=== PATIENT | female | born 2000 | race Caucasian/White ===

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

== ENCOUNTER 2019-03-28 08:33 | Emergency (ER) | payer OTHER ==
[~2019-03-28] VITALS: Ht 154.9 cm; Wt 105.0 kg
[2019-03-28] MEDS ORDERED: NICOTINE GUM2 MG BUCCAL (08:54)
[2019-03-28] MEDS ORDERED: ZOFRAN4 MG PO (10:11)
[2019-03-28] MEDS ORDERED: MACROBID 100 M100 MG PO (10:15)
== END 2019-03-28 10:39 | disposition home or self-care (01) ==
LOC: ED 08:33
DX: O21.2 Late vomiting of pregnancy (principal); Z3A.31 31 weeks gestation of pregnancy; F17.200 Nicotine dependence, unspecified, uncomplicated; Z88.0 Allergy status to penicillin; Z88.5 Allergy status to narcotic agent; Z79.899 Other long term (current) drug therapy
CPT/HCPCS: 80053; 81001; 83690; 85025; 87088; 96361; 96374; 99284-25; J2405; J7121

== ENCOUNTER 2019-04-29 18:11 | Emergency (ER) | payer OTHER ==
[~2019-04-29] VITALS: Ht 154.9 cm; Wt 105.0 kg
[~2019-04-29 18:11] MED LIST changes: +MACROBID 100 M100 MG PO; +NICOTINE GUM2 MG BUCCAL; +ZOFRAN4 MG PO
== END 2019-04-29 21:38 | disposition home or self-care (01) ==
LOC: ED 18:11
DX: J10.1 Influenza due to other identified influenza virus with other respiratory manifestations (principal); F17.200 Nicotine dependence, unspecified, uncomplicated; Z88.0 Allergy status to penicillin; Z88.5 Allergy status to narcotic agent
CPT/HCPCS: 80053; 81001; 85025; 87502; 96361; 96374; 96375; 99284-25; J2405; J2550; J7030

== ENCOUNTER 2019-05-02 12:35 | Observation (INO) | payer OTHER ==
--- NOTE | ~2019-05-02 | HP ---
[facility] [address] [place], [place] [address] Draft ADMISSION DATE: 05/02/2019 CHIEF COMPLAINT: Intrauterine at 36 weeks gestation with influenza and elevated transaminase. HISTORY OF PRESENT ILLNESS: Ms. Anguiano is a pleasant 18-year-old, G2, P0-0-1-0 with intrauterine at 36 weeks and 1 day gestation, who presented to the office today for routine OB visit. The patient was seen in the emergency department on 04/29/2019 with cough, malaise, nausea, and vomiting. She was subsequently diagnosed with influenza B and was treated as an outpatient with Tamiflu 75 mg p.o. b.i.d. The patient has had nausea and vomiting for approximately one month and had some incidentally mildly elevated transaminases one month ago. When seen in the ER on April 29, AST was significantly elevated at 128, ALT was 263 with the remainder of her labs otherwise normal. Again, she was discharged after being determined that she was stable and seen today for followup. Upon presentation in the office today, the patient is ill appearing, afebrile with a documented 13 pounds weight loss in two weeks time. She was then direct admit from the office. The patient reports nearly two weeks history of limited p.o. intake due to severe nausea and vomiting. Last full meal that she had was approximately two weeks ago. She feels weak, nauseated, tired, and vomiting multiple times per day. She complains of some low back pain, two weeks duration of diarrhea and headache. She also has a nonproductive cough, but denies fever, lightheadedness, or dizziness. The patient denies contractions, vaginal bleeding, discharge, and reports positive movement throughout this episode. The patient also reports multiple family members that have also had very similar symptoms, more mild in intensity. Her partner was also diagnosed with influenza in the emergency department on 04/29. PAST MEDICAL HISTORY: 1. Mild asthma, this is exercise and environmentally induced. 2. Depression. 3. Anxiety. SURGERIES: None. MEDICATIONS: 1. gummy one tablet daily. PATIENT NAME: ANDRE ANGUIANO HISTORY AND PHYSICAL DATE OF : [birth year] REPORT #: [id number] PHYSICIAN: MIGUEL ANDERSON DO PCP: STEFFI HARDY REPORT IS CONFIDENTIAL AND NOT TO BE RELEASED WITHOUT AUTHORIZATION [facility] [address] [place], [place] [address] Draft 2. Zofran 4 mg p.o. p.r.n., which patient denies taking. 3. Tamiflu 75 mg p.o. b.i.d., started 04/29/2019. ALLERGIES: Penicillin - rash and breathing problems. SOCIAL HISTORY: Approximately one cigarette per day. Denies alcohol or drug use, but did use marijuana in the beginning of her . FAMILY HISTORY: 1. Paternal uncle with diabetes type 2. 2. Maternal grandfather with kidney transplant. 3. Paternal grandmother with breast cancer, paternal aunt with ovarian cancer, paternal grandfather with skin cancer. 4. Paternal grandfather with heart disease. 5. Paternal uncle with COPD. REVIEW OF SYSTEMS: A complete review of systems was performed and negative except per HPI. PHYSICAL EXAMINATION: VITAL SIGNS: Temperature 97.5, pulse 104, respiratory rate 18, blood pressure 120/57, and pulse ox 99. HEENT: Normocephalic and atraumatic. NECK: Supple. Trachea midline. No lymphadenopathy. HEART: Regular rate and rhythm. No murmurs. LUNGS: Bilateral rales. No wheezes or crackles. Nonproductive cough noted. ABDOMEN: Gravid, soft, nondistended. No rebound or guarding noted. Fundal height 38 cm. PELVIC: Shows cervix closed, thick, and high. GBS was performed in the office today. EXTREMITIES: Trace edema bilaterally. LABORATORY EVALUATION: WBCs 6.8, hemoglobin 12.3, and platelets 256. PT 12.8, PTT 32, and fibrinogen 506. Sodium 135, potassium 3.6, chloride 104, CO2 of 15, BUN 7, creatinine 0.49, glucose 64, uric acid 7.8, calcium 9.3, phosphate 3.2, magnesium 1.5, AST 53, ALT 178, alkaline phosphatase 171, bilirubin 1.1, LDH 116. Urine protein creatinine ratio pending and hepatitis panel also pending. IMAGING DATA: BPP was performed that shows BPP 88 with heart rate 150, MARRY 19.75 in the breech PATIENT NAME: ANDRE ANGUIANO HISTORY AND PHYSICAL DATE OF : [birth year] REPORT #: [id number] PHYSICIAN: MIGUEL ANDERSON DO PCP: STEFFI HARDY REPORT IS CONFIDENTIAL AND NOT TO BE RELEASED WITHOUT AUTHORIZATION [facility] [address] [place] [address] [place], [place] [address] Draft presentation. Abdominal ultrasound shows normal pancreas, liver, gallbladder, right kidney, and no ascites. IMPRESSION: 1. Intrauterine at 36 and one week gestation. 2. Influenza B in . 3. Nausea and vomiting of /hyperemesis. 4. Elevated transaminases. PLAN: We will admit the patient for observation. We will replete electrolytes and treat symptomatically with IV bolus and fluids. We will also treat with antiemetics including Zofran, Reglan, and Phenergan p.r.n. Continuous monitoring was observed for the first several hours of her admission that showed category one tracing and this will be deescalated to q.shift unless clinical picture changes. The patient will continue Tamiflu 75 mg p.o. b.i.d. to complete a 5-day course of treatment. Diet regular and we will increase as tolerated. Again, imaging was normal and I believe that her symptoms are result of nausea, vomiting in /gastritis that was significantly exacerbated by recent diagnosis of influenza. Respiratory status is reassuring and I do not think that she will need escalation in her care for influenza at this time. I reviewed breech presentation with the patient and should she labor in breech presentation, a delivery would be indicated. Cervix is closed, thick and high today and we will continue to manage with possible external cephalic version in the future. All questions were answered to the best of my ability and the patient's apparent satisfaction. Group B strep was obtained in the office today and results are pending. We will repeat a.m. labs and likely discharge home tomorrow. All questions were answered to the best of my ability. DO MELL Singh/KENNA /[id number] Copies: PATIENT NAME: ANDRE ANGUIANO HISTORY AND PHYSICAL DATE OF : [birth year] REPORT #: [id number] PHYSICIAN: MIGUEL ANDERSON DO PCP: STEFFI HARDY REPORT IS CONFIDENTIAL AND NOT TO BE RELEASED WITHOUT AUTHORIZATION [address] [address] Draft ~ PATIENT NAME: ANDRE ANGUIANO HISTORY AND PHYSICAL DATE OF : [birth year] REPORT #: [id number] PHYSICIAN: MIGUEL ANDERSON DO PCP: STEFFI HARDY REPORT IS CONFIDENTIAL AND NOT TO BE RELEASED WITHOUT AUTHORIZATION
[2019-05-02] MEDS ORDERED: ONDANSETRON HCL4 MG PO (13:20)
[2019-05-02] MEDS ORDERED: NITROFURANTOIN100 M1 PO (13:21)
[2019-05-02] MEDS ORDERED: NICOTINE GUM2 MG (13:21)
--- NOTE | 2019-05-02 13:51 | NUR ---
PT TO ROOM 107 UNABLE TO OBTAIN IV ACCESS X3 ATTEMPTS, LAB HERE TO OBTAIN SAMPLE. US WILL COME BACK. PT HAD N/V 200MLS
--- NOTE | 2019-05-02 14:30 | NUR ---
MEDICATED WITH ZOFRAN 4MG IVP, REGLAN 10MG IVP AND PHERGANE 12.5 MG IVP SLOWLEY AND DILUTATED IN 20MLS OF NS. PT HAD HAD BEEN VOMETING AND NOT EVEN ABLE TO KEEP WATER DOWN.
--- NOTE | 2019-05-02 15:02 | NUR ---
PATIENT'S MOTHER CAME TO DESK AND REPORTS PATIENT IS SHAKY AND LIGHTHEADED. NURSE RESPONDED TO ROOM, PATIENT BREATHING FAST. NURSE INSTRUCTED TO PURSE LIP BREATH. BREATHING SLOWED. PATIENT REPORTS FEELING BETTER. VS TAKEN, REPORTED TO PRIMARY NURSE
--- NOTE | 2019-05-02 16:00 | NUR ---
PT APPEARS TO BE RESTING OR SLEEPING AT THIS TIME. SHE IS ON HER LEFTSIDE WITH THE MONITOR INPLACE. SHE RECEIVED HER 1 LITER BOLUS OF LR. AND NOW HAS LR AT 125MLS/HR RUNNING. HER FAMILY HAS BEEN AT THE BEDSIDE ALL AFTERNOON WITH PT.
--- NOTE | 2019-05-02 16:51 | NUR ---
PT DID VOID, BUT NO SAMPLE SENT ATT HIS TIME. WILL TRY AGAIN. PT STATES "I FEEL BETTER".
--- NOTE | 2019-05-02 17:04 | NUR ---
FAMILY BROUGHT IN [place] FOR THEMSELVES, PT TOOK AND LEMON/LINE SODA AT THIS TIME.
[2019-05-02] MEDS ORDERED: PHENADOZ25 MG PR (18:06)
[2019-05-02] MEDS ORDERED: TAMIFLU75 MG PO (18:06)
--- NOTE | 2019-05-02 18:07 | NUR ---
MED REC COMPLETE
--- NOTE | 2019-05-02 18:37 | NUR ---
URINE SAMPLE SENT TO LAB AT THIS TIME. PT VOIDED 200MLS DENISHA IN COLOR URINE. PT IN BED EATTING A SALAD AT THIS TIME. PT STATES "I FEEL SO MUCH BETTER" PT EVENS APPEAR TO LOOK BETTER WITH COLOR.
--- NOTE | 2019-05-02 19:10 | NUR ---
REPORT RECEIVED FROM DAY SHIFT RN. PT LYING IN BED, ALERT AND ORIENTED. FAMILY IN ROOM. MONITOR HOOKED UP BY OB NURSE. IVF INFUSING. PT DENIES NEEDS AT THIS TIME. CALL LIGHT IN REACH.
--- NOTE | 2019-05-02 20:30 | NUR ---
PATIENT PLACED ON BABY MONITOR PER ORDER. PATIENT TAKEN OFF AT APPROXIMATELY 1945 AFTER SPEAKING WIOTH [facility] NURSE. NO COMCERNS NOTED ON MONITOR BY [facility] NURSE. PATIENT TOLERATED ACTIVITY WELL. PATIENT DENIES ANY NEEDS. CALL LIGHT IN REACH.
--- NOTE | 2019-05-02 21:17 | NUR ---
MAGNESIUM SULFATE 3GM IN 100ML NS MIXED WITH TELE-PHARMACIST C.M. - VERIFIED THAT MAGNESIUM SULFATE TO BE INFUSED OVER 8HRS.
--- NOTE | 2019-05-03 00:06 | NUR ---
THIS RN AND WARD NURSE SINTA IN TO DO CARES AT 22OO. PT AND FAMILY ASLEEP IN ROOM. PT AND SIGNIFICANT OTHER (SO) AWAKENED. DIM LIGHT TURNED ON, WHILE SPEAKING TO PT SO BEGAN HAVING A SEIZURE IN THE RECLINER NEXT TO THE BED. THE PT LEPT OUT OF BED TO ATTEND TO SO. WARD NURSE AND MOTHER ATTENDED TO SO WHILE THIS RN ASSISTED PT BACK TO BED. RAPID RESPONSE CALLED. SO TO ED. PT ASSESSED, CONCERNS OF INCREASED CONTRACTIONS. PT PLACED ON MONITOR FOR 30 MIN. NO CHANGES NOTED FROM PREVIOUS MONITORING PER [facility] NURSE. PT DENIES PAIN. IV INFUSING PER ORDER. NO DISTRESS NOTED.
--- NOTE | 2019-05-03 00:25 | NUR ---
CALL LIGHT ANSWERED. PT UP TO BR WITH SBA. BACK TO BED, ANGELICA WELL. SCD'S ON. IVF INFUSING, IV SITE WNL. PT DENIES PAIN OR CONTRACTIONS. NO FURTHER NEEDS AT THIS TIME. CALL LIGHT IN REACH.
--- NOTE | 2019-05-03 01:30 | NUR ---
TALKED WITH PT ABOUT HER SIGNIFICANT OTHER NOT RETURNING TO ROOM DUE TO THE LIABILITY AND RISKS. PT UPSET BUT STATED UNDERSTANDING, JUST SAD ABOUT BEING AT HOSPITAL ALONE. PT AWARE THAT BOYFRIEND CAN COME TO SAY GOOD BYE.
--- NOTE | 2019-05-03 01:37 | NUR ---
PT'S SIGNIFICANT OTHER WALKED BY NURSE STATION ON THE WAY TO THE FRONT ENTRANCE VISIBLY UPSET MUTTERING "IT'S MY FUCKING ". IN TO CHECK ON PT. PT TEARFUL SITTING IN BED, EXPRESSED CONCERN THAT SHE IS IN THE ROOM BY HERSELF AND SHE'S NEVER STAYED IN THE HOSPITAL BEFORE. ATTEMPTED TO COMFORT PT. PT STATES SHE HAS SOME NAUSEA BUT BELIEVES IT IS DUE TO HER "NERVES". UP TO BR WITH SBA, BACK TO BED. ANGELICA WELL. VS AND I&O COMPLETE. SCD'S ON. IVF INFUSING. PT DENIES CONTRACTIONS OR PAIN. CALL LIGHT IN REACH.
--- NOTE | 2019-05-03 04:00 | NUR ---
PT RESTING IN BED WITH EYES CLOSED, NAD. RR EVEN AND UNLABORED. IVF INFUSING. CALL LIGHT WITHIN REACH.
--- NOTE | 2019-05-03 04:50 | NUR ---
CALL LIGHT ANSWERED. PT UP TO BR WITH MINIMAL SBA. BACK TO BED, ANGELICA WELL. DENIES PAIN OR NAUSEA. NO FURTHER NEEDS AT THIS TIME. CALL LIGHT IN [facility].
--- NOTE | 2019-05-03 05:38 | NUR ---
PT FINALLY ABLE TO REST AFTER EVENTS WITH SIGNIFICANT OTHER. PT 36 WEEKS . MONITOR Q SHIFT. INFLUENZA B+. ISOLATION. VSS. URINE OUTPUT QS. DENIES PAIN OR CONTRACTIONS. SCD'S. USES CALL LIGHT APPROPRIATELY.
--- NOTE | 2019-05-03 06:03 | NUR ---
CALL LIGHT ANSWERED. PT C/O NAUSEA. COLD WASHCLOTH PROVIDED. LAB IN ROOM TO DRAW BLOOD PRIOR TO NAUSEA, PT STATES "SHE THREW UP" THE LAST TIME SHE HAD BLOOD DRAWN. PT DENIES ANTIEMETIC, STATES NAUSEA IS GETTING BETTER. INSTRUCTED PT TO USE NURSE CALL IF NAUSEA WORSENS. CALL LIGHT IN REACH.
--- NOTE | 2019-05-03 07:51 | NUR ---
PT IS ALERT, SITTING UP IN BED, DENIES NAUSEA AT THIS TIME, ORDERED BREAKFAST. OCCASIONAL LOOSE COUGH, STATES BABY IS ACTIVE THIS AM. DENEIS ANY NEEDS.
--- NOTE | 2019-05-03 08:06 | NUR ---
PATIENT WAS A WAKE SETTING UP IN BED. WAS GIVENG WASH CLOTH TO WASH UP WATER FILLED AND SHE ORDERED HER BREAKFAST CALL LIGHT IN REACH NO OTHER NEEDS AT THIS TIME.
--- NOTE | 2019-05-03 09:30 | NUR ---
DR ANDERSON IN TO SEE PT, PLEASED WITH HER PROGRESS, IF PT CONT. TO IMPROVE MAY DC HOME AFTER LUNCH.
--- NOTE | 2019-05-03 11:00 | NUR ---
PT UP TO SHOWER, REPORTS SHE IS FEELING MUCH BETTER, LUNCH ORDER PLACED MOTHER AND IN ROOM, COFFEE PROVIDED.
--- NOTE | 2019-05-03 12:38 | NUR ---
Met with La in her room. Mom present and fiance sleeping in chair. Pt. lives with mom. They both deny needs for dc. Pt will go home with mom when feeling better.
[2019-05-03] MEDS ORDERED: PROMETHAZINE HC25 M1 PO (14:35)
--- NOTE | 2019-05-03 15:15 | NUR ---
REVIEWED DISCHARGE INSTRUCTIONS WITH PATIENT, VERBALIZES UNDERSTANDING OF MEDICATIONS AND FOLLOWUP APPOINTMENT.
== END 2019-05-03 15:20 | disposition home or self-care (01) ==
LOC: FBC 12:35 → MS 12:50
PROVIDERS: ADMIT Obstetrics & Gynecology
DX: O21.0 Mild hyperemesis gravidarum (principal); O99.513 Diseases of the respiratory system complicating pregnancy, third trimester; J10.1 Influenza due to other identified influenza virus with other respiratory manifestations; O99.333 Smoking (tobacco) complicating pregnancy, third trimester; F17.210 Nicotine dependence, cigarettes, uncomplicated; O99.89 Other specified diseases and conditions complicating pregnancy, childbirth and the puerperium; R74.0 Nonspecific elevation of levels of transaminase and lactic acid dehydrogenase [LDH]; Z3A.36 36 weeks gestation of pregnancy; Z88.0 Allergy status to penicillin
CPT/HCPCS: 36415; 59025; 76705; 76819; 80053; 82570; 83615; 83735; 84100; 84156; 84550; 85025; 85384; 85610; 85730; 86704; 86706; 86709; 86803; 87340; 96361; 96365; 96366; 96375; 99406; G0378; J2405; J2550; J2765; J3475; J7121

== ENCOUNTER 2019-05-28 03:57 | Inpatient (IN) | payer OTHER ==
[~2019-05-28] VITALS: Ht 154.9 cm; Wt 104.0 kg
--- NOTE | ~2019-05-28 | OR ---
[facility] [address] [place] [id number] Draft DATE OF OPERATION: 05/28/2019 SURGEON: Miguel Gates DO PREOPERATIVE DIAGNOSES: 1. Term intrauterine . 2. Failure to progress. 3. Obesity. POSTOPERATIVE DIAGNOSES: 1. Term intrauterine . 2. Failure to progress. 3. Obesity. PROCEDURE PERFORMED: Primary low transverse delivery. NETWORKING TECHNOLOGY INSTRUCTOR: Melly Schulte MD. ANESTHESIA: Epidural. ESTIMATED BLOOD LOSS: 500 mL. COMPLICATIONS: None. SPECIMENS: None. FINDINGS: Delivery of viable female born in the REYMUNDO position with meconium-stained fluid. Apgars 8 and 9. Normal uterus, tubes, and ovaries. INDICATIONS: Ms. Anguiano is a pleasant 18-year-old G1, P0, white female, who presented with spontaneous rupture of membranes. She is admitted to Labor and Delivery and received vancomycin per ACOG guidelines for group B strep positive status. The patient did have a penicillin PATIENT NAME: ANDRE ANGUIANO OPERATIVE REPORT DATE OF : [birth year] REPORT #: [id number] PHYSICIAN: MIGUEL GATES DO PCP: STEFFI HARDY REPORT IS CONFIDENTIAL AND NOT TO BE RELEASED WITHOUT AUTHORIZATION [facility] [address] [place] [id number] Draft allergy and unknown resistance to clindamycin and erythromycin. The patient made no cervical change and Pitocin was added. IUPC was later placed and contractions were augmented with Pitocin until adequate. The patient made very slow cervical change for the course of many hours and eventually no cervical change despite adequate contraction again for many hours. Decision was made to proceed with primary low transverse delivery. Risks, benefits, and alternatives were discussed in detail. The patient understands and wishes to proceed with the procedure. heart tracing was reassuring throughout, however, there was light meconium-stained fluid noted. TECHNIQUE: The patient was taken to the operating room where a time-out was performed to confirm correct patient and correct procedure. Epidural anesthesia had been previously administered during the course of labor and was bolused until adequate. The patient had just received her previous dose of vancomycin 2 g and azithromycin 500 mg IV was added for additional coverage. The patient was then prepped and draped in the supine position with a bump in her right hip. ICPs were on and running and a vaginal prep was performed. Once establishing the epidural anesthetic was adequate, a Pfannenstiel skin incision was made and carried down through the subcu until the fascia was nicked in the midline. The fascial incision was then extended bilaterally using sharp dissection with Boyd scissors. The fascia was grasped with Joao elevated, and the underlying rectus muscle dissected off bluntly and sharply. The rectus muscles were divided in the midline bluntly and the peritoneum was grasped with hemostats, elevated, and entered sharply. Peritoneal incision was extended bilaterally using blunt and sharp dissection. The lower uterine segment was identified and an Dylan self retractor was placed through the laparotomy. Again, the lower uterine segment was identified and hysterotomy was performed using a surgical scalpel. Meconium-stained fluid was noted and hysterotomy was extended bilaterally using blunt dissection. The surgeon's hand was placed in the uterine cavity and the head elevated in the abdomen. The head and body were easily delivered with the assistance of fundal pressure. No nuchal cord was noted and the was vigorous and cried upon delivery. The cord was doubly clamped and cut. The handed to the waiting pediatric team for further care. Cord blood was obtained for routine analysis and a portion of the cord was also reserved. The placenta was then manually expressed and delivered intact with a centrally inserted three-vessel cord. Bleeding was light. The uterine cavity was cleared of any remaining products of conception and clot. Hysterotomy was then repaired using 0 Vicryl in a running locked stitch. A second imbricating suture of 0 Vicryl was applied in a vertical manner with good imbrication. Small amount of oozing was noted in the midline of the hysterotomy and this was repaired using a fwdfci-yl-gwzpc of 0 Vicryl. The pelvis was irrigated and found to be hemostatic. Normal tubes and ovaries were appreciated bilaterally. The Dylan self retractor was removed and the pelvis again irrigated and found to be hemostatic. ACell sheet was applied to the lower uterine segment and peritoneum was then reapproximated using 2-0 Vicryl in a running PATIENT NAME: ANDRE ANGUIANO OPERATIVE REPORT DATE OF : 98 REPORT #: [id number] PHYSICIAN: MIGUEL GATES DO PCP: STEFFI HARDY REPORT IS CONFIDENTIAL AND NOT TO BE RELEASED WITHOUT AUTHORIZATION [facility] [address] [place], [place] [address] Draft nonlocked manner. The rectus was examined and a small amount of oozing was made hemostatic with Bovie electrocautery. The rectus muscles were then loosely approximated in the midline using 0 Vicryl in interrupted sutures. ACell powder was applied to the rectus sheath. Fascia was then reapproximated using 0 Vicryl in a running nonlocked manner. Subcu was reapproximated using 2-0 Vicryl in a running nonlocked manner after ensuring hemostasis. The skin was then reapproximated using surgical margaux. The uterus was Crede'd for scant amount of blood and the patient was taken to PACU in good and stable condition. Sponge, needle, and instrument count was correct x2 at the end of procedure. Dr. Schulte was present and participated in all portions of procedure. Miguel Gates DO JDW/MODL /[id number] Copies: ~ PATIENT NAME: ANDRE ANGUIANO OPERATIVE REPORT DATE OF : 98 REPORT #: [id number] PHYSICIAN: MIGUEL GATES DO PCP: STEFFI HARDY REPORT IS CONFIDENTIAL AND NOT TO BE RELEASED WITHOUT AUTHORIZATION
[~2019-05-28 03:57] MED LIST changes: +NICOTINE GUM2 MG; +NITROFURANTOIN100 M1 PO; +ONDANSETRON HCL4 MG PO; +PHENADOZ25 MG PR; +PROMETHAZINE HC25 M1 PO; +TAMIFLU75 MG PO
--- NOTE | 2019-05-28 11:16 | PR ---
[facility] [address] [place], [place] [address] Signed Progress Notes IP Datetime Report Generated by CPN: 05/28/2019 11:16 PROGRESS NOTES: [id number] Impression: Slow Progression of Labor Procedures: Intrauterine Pressure Catheter Plan: Continue present management Informed Consent Obtain: Vaginal Delivery; Section Delivery VITAL SIGNS: [id number] Vital Signs: Reviewed; Within Normal Limits EXAM: [id number] Dilatation: 2.0 Effacement: 70 Station: -3 Uterine Contractions: q 1-2 min, inadequate MEMBRANES: [id number] Membrane Status: Ruptured Amniotic Fluid Color: Clear Comments: Pt seen and examined. Doing well. Becoming uncomfortable w/ contractions. Minimal change noted despite several hours of pitcoin. Discussed IUPC and after verbal consent, IUPC placed w/out difficulty. Will monitor contractions and cervical progress closely. Continue vacomycin, but will decrease rate as was tolerated at last dosing. Discussed indications for if needed. All questions answered. Fetus A: [id number] FHR Baseline: 120 Variability: Moderate 6-25bpm Accelerations: 15X15 Decelerations: None FHR Category: Category I Presentation: Vertex Comments on Fetus A: No evidence of metabolic acidosis Fetus B: [id number] Signing Physician: Miguel Gates DO Copies: ~ *Electronically Signed* 05/28/19 1116 MIGUEL GATES DO PATIENT NAME: ANDRE VELIZ PROGRESS NOTE DATE OF : [birth year] PHYSICIAN: MIGUEL GATES DO RPT #: [id number] REPORT IS CONFIDENTIAL AND NOT TO BE RELEASED WITHOUT AUTHORIZATION
--- NOTE | 2019-05-28 14:27 | PR ---
[facility] [address] [place], [place] [address] Signed Progress Notes IP Datetime Report Generated by CPAscencion: 05/28/2019 14:26 PROGRESS NOTES: [id number] Impression: Slow Progression of Labor Procedures: Sterile Vag Exam Plan: Continue present management; Anesthesia consult Informed Consent Obtain: Vaginal Delivery; Section Delivery VITAL SIGNS: [id number] Vital Signs: Reviewed; Within Normal Limits EXAM: [id number] Dilatation: 2.5 Effacement: 70 Station: -3 Uterine Contractions: q 1-2 min adequate MEMBRANES: [id number] Membrane Status: Ruptured Amniotic Fluid Color: Clear Comments: Pt seen and examined. Very uncomfortable w/ contractions. Requesting epidural. Contractions now adequate with pitocin. FHT Cat and reassuring. No sign of intrauterine infection. Little to no cervical change despite adequate contractions. Discussed if unchanged at next check would recommend primary LTCS. Pt undertstands and agrees. All questions answered Fetus A: [id number] FHR Baseline: 120 Variability: Moderate 6-25bpm Accelerations: 15X15 Decelerations: None FHR Category: Category I Presentation: Vertex Comments on Fetus A: No evidence of metabolic acidosis Fetus B: [id number] Signing Physician: Miguel Gates DO Copies: ~ *Electronically Signed* 05/28/19 1426 MIGUEL GATES DO PATIENT NAME: ANDRE VELIZ PROGRESS NOTE DATE OF : [birth year] PHYSICIAN: MIGUEL GATES DO [facility] #: [id number] REPORT IS CONFIDENTIAL AND NOT TO BE RELEASED WITHOUT AUTHORIZATION
--- NOTE | 2019-05-28 16:38 | PR ---
[facility] [address] [place], [place] [address] Signed Progress Notes IP Datetime Report Generated by CPN: 05/28/2019 16:38 PROGRESS NOTES: [id number] Impression: Slow Progression of Labor Procedures: Artificial ROM; Sterile Vag Exam Plan: Continue present management Informed Consent Obtain: Vaginal Delivery; Section Delivery VITAL SIGNS: [id number] Vital Signs: Reviewed; Within Normal Limits VS Notable Details: Afebrile EXAM: [id number] Dilatation: 3.5 Effacement: 75 Station: -2 Uterine Contractions: q 1-4 minutes; adequate MEMBRANES: [id number] Membrane Status: Ruptured Amniotic Fluid Color: Meconium, Light ROM Note: Residual forebag noted and verbal consent obtained for AROM. Forebag easily ruptured without difficulty for moderate amount of light mec stained fluid. Comments: Pt seen and examined. Comfortable w/ epidural. Cervcial change noted from last exam and residual forebag ruptured without difficulty for moderate amount of lightly meconium stained amniotic fluid. FHT reassuring. Again adequate pelvis noted and no suspicion for macrosomic baby. She continues to be afebrile. Continue pitocin per protocol and will monitor progress slowly Fetus A: [id number] FHR Baseline: 115 Variability: Moderate 6-25bpm Accelerations: 15X15 Decelerations: None FHR Category: Category I Presentation: Vertex Other Presentation: IOANA Comments on Fetus A: No evidence of metabolic acidosis Fetus B: [id number] Signing Physician: Miguel Gates DO Copies: *Electronically Signed* 05/28/19 1035 MIGUEL GATES DO PATIENT NAME: ANDRE VELIZ PROGRESS NOTE DATE OF : [birth year] PHYSICIAN: MIGUEL GATES DO RPT #: [id number] REPORT IS CONFIDENTIAL AND NOT TO BE RELEASED WITHOUT AUTHORIZATION [facility] [address] [place] [address] Signed ~ *Electronically Signed* 05/28/19 1638 VAN HORNESVILLEMIGUEL DO PATIENT NAME: ANDRE VELIZ PROGRESS NOTE DATE OF : [birth year] PHYSICIAN: MIGUEL GATES DO RPT #: [id number] REPORT IS CONFIDENTIAL AND NOT TO BE RELEASED WITHOUT AUTHORIZATION
--- NOTE | 2019-05-28 19:06 | PR ---
[facility] [address] [place], [place] [address] Signed Progress Notes IP Datetime Report Generated by MEG: 05/28/2019 19:06 PROGRESS NOTES: [id number] Impression: Arrest of dilatation/descent Procedures: Sterile Vag Exam Plan: Deliver- Section Informed Consent Obtain: Section Delivery; Risks, Benefits and Alternatives Discussed VITAL SIGNS: [id number] Vital Signs: Reviewed; Within Normal Limits VS Notable Details: Afebrile EXAM: [id number] Dilatation: 3.5 Effacement: 75 Station: -2 Uterine Contractions: q 1-3 minutes; continued adequate MEMBRANES: [id number] Membrane Status: Ruptured Amniotic Fluid Color: Meconium, Light ROM Note: Residual forebag noted and verbal consent obtained for AROM. Forebag easily ruptured without difficulty for moderate amount of light mec stained fluid. Comments: Pt seen and examined. More uncomfortable w/ contractions. Contractions adequate with pitocin, however significant cervical change noted. While FHT is reassuring and pt shows no signs of chorioamnionitis, I recommended primary LTCS for arrest of dilation. Pt and family understand and agree. Reviewed risks of in detail including risks of infection, bleeding or injury to surrounding organs. Discussed risks of future deliveries. All questions answered and consents signed. OR crew and Dr. Schulte called and en route. Will stop pit. Add azithromycin to vancomycin for abx prophylaxis Fetus A: [id number] FHR Baseline: 120 Variability: Moderate 6-25bpm Accelerations: 15X15 Decelerations: None FHR Category: Category I Presentation: Vertex Other Presentation: IOANA Comments on Fetus A: No evidence of metabolic acidosis Fetus B: [id number] *Electronically Signed* 05/28/191905 MIGUEL GATES DO PATIENT NAME: ANDRE VELIZ PROGRESS NOTE DATE OF : [birth year] PHYSICIAN: MIGUEL GATES DO RPT #: [id number] REPORT IS CONFIDENTIAL AND NOT TO BE RELEASED WITHOUT AUTHORIZATION [address] [address] Signed Signing Physician: Miguel Gates DO Copies: ~ *Electronically Signed* 05/28/191905 MIGUEL GATES DO PATIENT NAME: ANDRE VELIZ PROGRESS NOTE DATE OF : [birth year] PHYSICIAN: MIGUEL GATES DO RPT #: [id number] REPORT IS CONFIDENTIAL AND NOT TO BE RELEASED WITHOUT AUTHORIZATION
--- NOTE | 2019-05-28 20:30 | NUR ---
05/28/192028 Antoinette Cantu 2018: PT ARRIVES TO [facility] RM 102 AWAKE AND ALERT. RESP EVEN AND UNLABORED. PT DENIES PAIN OR NAUSEA. FAMILY IN ROOM ON ARRIVAL. 2024: FAMILY LEAVES ROOM, SIG OTHER STAYS AT BEDSIDE. BABY TO BREAST, LATCHES WELL. PT CONT TO DENY PAIN OR NAUSEA. HOB SLIGHTLY RAISED TO SEMI FOWLERS.
--- NOTE | 2019-05-29 08:04 | PR ---
[facility] [address] [facility] [place] [address] Signed PP Progress Notes Datetime Report Generated by CPN: 05/29/2019 08:04 SUBJECTIVE: [id number] Pain: Within normal limits Nausea/Vomiting: Denies Flatus: No Vital Signs: [id number] Vital Signs: Reviewed; Within Normal Limits EXAM: [id number] Cardiovascular: Normal Respiratory: Normal Abdomen/Uterus: Normal Lochia: Normal Vulva/Perineum: Not Done Breasts: Not Done CVA Tenderness: Normal Extremities: Normal Incision: Normal Progress: Not Applicable Exam Comments: Fundus firm U-2. Incision bandaged IMPRESSION/PLAN/PROCEDURES: [id number] Impression: Normal progression Plan: Continue present management Signing Physician: Miguel Gates DO Copies: ~ *Electronically Signed* 05/29/19 0804 MIGUEL GATES DO PATIENT NAME: ANDRE VELIZ PROGRESS NOTE DATE OF : 98 PHYSICIAN: MIGUEL GATES DO RPT #: [id number] REPORT IS CONFIDENTIAL AND NOT TO BE RELEASED WITHOUT AUTHORIZATION
--- NOTE | 2019-05-30 11:02 | PR ---
[facility] [address] [facility] [place], [place] [address] Signed PP Progress Notes Datetime Report Generated by CPN: 05/30/2019 11:02 SUBJECTIVE: [id number] Pain: Within normal limits Nausea/Vomiting: Denies Flatus: Yes Vital Signs: [id number] Vital Signs: Reviewed; Within Normal Limits EXAM: [id number] Cardiovascular: Normal Respiratory: Normal Abdomen/Uterus: Normal Lochia: Normal Vulva/Perineum: Not Done Breasts: Not Done CVA Tenderness: Normal Extremities: Normal Incision: Normal Progress: Normal Exam Comments: Fundus firm U-2 nontender. Incision well healed IMPRESSION/PLAN/PROCEDURES: [id number] Impression: Normal progression Plan: Continue present management Progress Notes: Pt seen and examined. Doing well. Ambulating, voiding, and tolerating full diet. Pain and lochia minimal. with assistance. No fevers/chills/lightheadedness or dizziness. Desires d/c home today. Hgb 9.5. Signing Physician: Miguel Gates DO Copies: ~ *Electronically Signed* 05/30/19 1102 MIGUEL GATES DO PATIENT NAME: ANDRE VELIZ PROGRESS NOTE DATE OF : 98 PHYSICIAN: MIGUEL GATES DO RPT #: [id number] REPORT IS CONFIDENTIAL AND NOT TO BE RELEASED WITHOUT AUTHORIZATION
== END 2019-05-30 19:05 | disposition home or self-care (01) | DRG 788 ==
LOC: FBCO 03:57 → FBC 04:33
PROVIDERS: Obstetrics & Gynecology; ADMIT Obstetrics & Gynecology
PROC: 10H07YZ Insertion of Other Device into Products of Conception, Via Natural or Artificial Opening (ICD-10-PCS; 2019-05-28)
PROC: 10907ZC Drainage of Amniotic Fluid, Therapeutic from Products of Conception, Via Natural or Artificial Opening (ICD-10-PCS; 2019-05-28)
PROC: 00HU33Z Insertion of Infusion Device into Spinal Canal, Percutaneous Approach (ICD-10-PCS; 2019-05-28)
PROC: 3E0R3BZ Introduction of Anesthetic Agent into Spinal Canal, Percutaneous Approach (ICD-10-PCS; 2019-05-28)
PROC: 10D00Z1 Extraction of Products of Conception, Low, Open Approach (ICD-10-PCS; principal; 2019-05-28 19:23)
DX: O99.824 Streptococcus B carrier state complicating childbirth (principal); Z3A.39 39 weeks gestation of pregnancy; Z37.0 Single live birth; O62.1 Secondary uterine inertia; E66.01 Morbid (severe) obesity due to excess calories; O99.214 Obesity complicating childbirth; O63.9 Long labor, unspecified; O77.0 Labor and delivery complicated by meconium in amniotic fluid; O99.334 Smoking (tobacco) complicating childbirth; F17.210 Nicotine dependence, cigarettes, uncomplicated; O99.324 Drug use complicating childbirth; F12.90 Cannabis use, unspecified, uncomplicated; Z88.0 Allergy status to penicillin
CPT/HCPCS: 01961; 36415; 85027; A9270; J0456; J1650; J1885; J2274; J2405; J2590; J2795; J3370; J7060; J7121; Q0163

== ENCOUNTER 2019-07-21 08:15 | Emergency (ER) | payer OTHER ==
[~2019-07-21] VITALS: Ht 154.9 cm; Wt 92.7 kg
== END 2019-07-21 08:59 | disposition home or self-care (01) ==
LOC: ED 08:15
DX: J06.9 Acute upper respiratory infection, unspecified (principal); F17.200 Nicotine dependence, unspecified, uncomplicated; Z88.0 Allergy status to penicillin; Z88.5 Allergy status to narcotic agent; Z91.013 Allergy to seafood
CPT/HCPCS: 99283

== ENCOUNTER 2019-09-07 07:14 | Emergency (ER) | payer OTHER ==
[~2019-09-07] VITALS: Ht 154.9 cm; Wt 92.7 kg
[2019-09-07] MEDS ORDERED: NORCO 5-325 TA1 EACH PO (10:56)
== END 2019-09-07 11:15 | disposition home or self-care (01) ==
LOC: ED 07:14
DX: N83.201 Unspecified ovarian cyst, right side (principal); J45.909 Unspecified asthma, uncomplicated; F32.9 Major depressive disorder, single episode, unspecified; F17.200 Nicotine dependence, unspecified, uncomplicated; Z88.0 Allergy status to penicillin; Z88.5 Allergy status to narcotic agent
CPT/HCPCS: 76830; 76856; 80053; 81001; 83690; 84703; 85025; 87210; 87491; 87591; 96361; 96374; 96375; 99284-25; J2270; J2405; J7030

== ENCOUNTER 2020-11-19 00:48 | Inpatient (IN) | payer OTHER ==
[~2020-11-19] VITALS: Ht 154.9 cm; Wt 112.0 kg
--- NOTE | 2020-11-19 02:58 | NUR ---
[facility] RAPID COVID TEST DONE PER ORDER. COVID TEST COLLECTED FROM BOTH NARES W/O ISSUE. PT TOLERATED WELL.
--- NOTE | 2020-11-19 05:27 | NUR ---
11/19/20 0527 Naina Quintanilla 0507 PT ARRIVED IN PACU AWAKE WITH NO C/O'S. TEXTING PICTURES TO FAMILY. 0520 AT BEDSIDE TALKING WITH PT.
[2020-11-19] MEDS ORDERED: PRENATAL VITAM1 EACH PO (20:02)
--- NOTE | 2020-11-20 11:04 | PR ---
[facility] [address] [facility] [place], [place] [address] Signed PP Progress Notes Datetime Report Generated by CPN: 11/20/2020 11:04 SUBJECTIVE: [id number] Pain: Within Normal Limits Nausea/Vomiting: Denies Flatus: No Bowel Movement: Yes Vital Signs: [id number] Vital Signs: Reviewed; Within Normal Limits Cardiovascular: Normal Respiratory: Normal Abdomen/Uterus: Normal Lochia: Normal Extremities: Normal Incision: Normal Progress: Normal Exam Comments: NAD, sitting up in bed RRR No dyspnea Abd SNTND FFBU Incision: c/d/i, no erythema/drainage, margaux in place IMPRESSION/PLAN/PROCEDURES: [id number] Impression: Normal Progression Plan: Continue Present Management Procedures: None Progress Notes: POD#1 s/p RLTCS at 38 5/7 (spontaneous onset of labor) Hgb 9.4 this am, will start oral iron Ambulating, voiding, +BM, tolerating regular diet well Feeling extremely anxious, strongly desires DC to home today. Reports similar situation last -- requested DC to home POD#1 (pain well controlled on motrin) and did well at home. Will discuss with peds; if baby cleared to go will DC to home today. Signing Physician: Cindy López DO Copies: *Electronically Signed* 11/20/20 1104 CINDY LÓPEZ DO PATIENT NAME: ANDRE VELIZ PROGRESS NOTE DATE OF : 98 PHYSICIAN: CINDY LÓPEZ DO RPT #: [id number] REPORT IS CONFIDENTIAL AND NOT TO BE RELEASED WITHOUT AUTHORIZATION [address], [place] [address] Signed ~ *Electronically Signed* 11/20/20 1104 CINDY LÓPEZ DO PATIENT NAME: ANDRE VELIZ PROGRESS NOTE DATE OF : 98 PHYSICIAN: CINDY LÓPEZ DO RPT #: [id number] REPORT IS CONFIDENTIAL AND NOT TO BE RELEASED WITHOUT AUTHORIZATION
[2020-11-20] MEDS ORDERED: SUMATRIPTAN SU100 MG PO (15:07)
--- NOTE | 2020-11-24 16:25 | OR ---
[facility] [address] [place], [place] [address] Signed DATE OF OPERATION: 11/19/2020 SURGEON: Bambi López DO PROCEDURE: Repeat low-transverse . PREOPERATIVE DIAGNOSES: History of prior , spontaneous onset of labor at 38 weeks gestation, obesity, anxiety. POSTOPERATIVE DIAGNOSES: History of prior , spontaneous onset of labor at 38 weeks gestation, obesity, anxiety, adhesive disease. SENIOR GOVERNMENT PROGRAM ANALYST: Austin Green MD. BLOOD LOSS: 600 mL. COMPLICATIONS: None. LINES: None. DRAINS: Esteban catheter. FINDINGS: Moderate scarring of rectus fascia on the right anterior wall, bladder adhesion to anterior uterus at midline, otherwise normal-appearing uterus, tubes, and ovaries. Viable term female infant weighing 6 pounds 13 ounces with Apgars of 8 and 9 at 1 and 5 minutes respectively delivered in the right occiput posterior position. INDICATIONS: The patient is a 20-year-old female with history of prior , who [facility] with complaint of contractions. Upon arrival, she was fingertip and thick, but after 1 hour, she progressed to 1.5 cm and 50% effacement, and was Electronically Signed By: BAMBI LÓPEZ DO 11/24/20 1625 PATIENT NAME: ANDRE VELIZ OPERATIVE REPORT DATE OF : 98 REPORT #: [id number] PHYSICIAN: BAMBI LÓPEZ DO PCP: STEFFI HARDY REPORT IS CONFIDENTIAL AND NOT TO BE RELEASED WITHOUT AUTHORIZATION [facility] [address] [place], [place] [address] Signed complaining of increasing intensity of contractions. Risks, benefits, and alternatives to repeat were discussed and she elected to proceed. DESCRIPTION OF PROCEDURE: The patient was taken to the operating room where she was given clindamycin and gentamicin and spinal anesthesia was placed. She was given heparin 5000 units preop. Esteban catheter was placed and she was prepped and draped in supine position with a leftward tilt in normal sterile fashion. Adequate spinal anesthesia was confirmed. Incision was made with a scalpel through her prior Pfannenstiel scar and carried through to the underlying layer of fascia with Bovie cautery. The fascia was incised laterally and carried through midline with scalpel then extended laterally with Boyd scissors. Inferior margin of the fascia was grasped and elevated with Joao clamps. Underlying rectus muscle dissected off with blunt and sharp dissection with Boyd scissors without significant difficulty. Superior margin of fascia was then grasped and elevated and more dense scarring was noted, it was dissected off sharply and bluntly with Boyd scissors with considerably more difficulty than the inferior margin. Peritoneum was entered bluntly at midline superiorly and extended inferiorly with Metzenbaum scissors with good visualization of the bladder adhesion on the anterior uterus. Dylan retractor was placed. Vesicouterine peritoneum was grasped and elevated with pickups and bladder flap was created with Metzenbaum scissors. Hysterotomy was made with a scalpel and extended laterally with gentle superior and inferior digital traction. Infant's head was easily grasped and elevated to the level of the hysterotomy and delivered without difficulty in the ROP position. Meconium fluid was noted. Baby gave a strong spontaneous cry as cord was immediately doubly clamped and cut. The baby was handed off to waiting nursery team for further care. Cord blood was collected for type and Francisco J and segment of cord was doubly clamped, cut, and set aside. The placenta was manually expressed and was noted to be meconium stained with a centrally inserted three vessel cord. Uterus was cleared of clots and debris and an anchor stitch was placed at the right apex of the hysterotomy with 0 Monocryl. First layer of closure was completed with 0 Monocryl in a running locked fashion. Second layer of closure was completed with 0 Monocryl in an imbricating fashion. Bleeding was cauterized with Bovie cautery and an oozing margin of the serosa at the left apex was resistant to Bovie cautery and a stitch was placed in a wzqdmx-vx-mrdrq fashion with 0 Monocryl with resulting hemostasis. Pelvis was suction irrigated with warm sterile saline. Uterus was examined with findings as noted above and Dylan retractor was removed. ACell sheet was applied over the hysterotomy, which remained hemostatic. The perineum was closed with 2-0 Vicryl during the closure. Two areas of omental adhesion to the anterior peritoneum were noted. These were doubly clamped and cut, and suture ligated with 2-0 chromic with excellent hemostasis noted. Closure of the perineum was completed with a 2-0 Vicryl in Electronically Signed By: BAMBI LÓPEZ DO 11/24/20 1625 PATIENT NAME: ANDRE VELIZ OPERATIVE REPORT DATE OF : 98 REPORT #: [id number] PHYSICIAN: BAMBI LÓPEZ DO PCP: STEFFI HARDY REPORT IS CONFIDENTIAL AND NOT TO BE RELEASED WITHOUT AUTHORIZATION [address] [address] Signed a running fashion. Rectus muscle was reapproximated over the perineum at midline with 0 Vicryl in a simple interrupted fashion. Perforating vessels were cauterized with Bovie cautery and ACell powder was applied. The fascia was closed with two separate stitches working from zuled-vl-begv ending at midline and then gdik-qm-kntnp ending at midline each with 0 Vicryl in a running fashion. Subcutaneous layer was examined for perforating vessels, which were cauterized with Bovie cautery with resulting hemostasis with suction irrigated to confirm hemostasis and then subcutaneous layer was closed with 3-0 Vicryl in a running fashion. Skin was closed with skin clips. Uterus was created with minimal clots. Lap and instrument counts were correct x2. The patient was taken to the recovery room in stable and satisfactory condition. Bambi López DO EMZ/MODL /[id number] Copies: ~ Electronically Signed By: BAMBI LÓPEZ DO 11/24/20 1625 PATIENT NAME: ANDRE VELIZ OPERATIVE REPORT DATE OF : 98 REPORT #: [id number] PHYSICIAN: BAMBI LÓPEZ DO PCP: STEFFI HARDY REPORT IS CONFIDENTIAL AND NOT TO BE RELEASED WITHOUT AUTHORIZATION
== END 2020-11-20 16:55 | disposition home or self-care (01) | DRG 787 ==
LOC: FBCO 00:48 → FBC 02:41
PROVIDERS: ADMIT Obstetrics & Gynecology; ATTEND Obstetrics & Gynecology
PROC: 10D00Z1 Extraction of Products of Conception, Low, Open Approach (ICD-10-PCS; principal; 2020-11-19 03:43)
DX: O34.211 Maternal care for low transverse scar from previous cesarean delivery (principal); O99.324 Drug use complicating childbirth; O99.214 Obesity complicating childbirth; Z3A.38 38 weeks gestation of pregnancy; Z37.0 Single live birth; Z20.822 Contact with and (suspected) exposure to COVID-19; E66.9 Obesity, unspecified; O99.344 Other mental disorders complicating childbirth; F41.9 Anxiety disorder, unspecified; N85.8 Other specified noninflammatory disorders of uterus; O28.2 Abnormal cytological finding on antenatal screening of mother; O99.334 Smoking (tobacco) complicating childbirth; F17.210 Nicotine dependence, cigarettes, uncomplicated; F12.90 Cannabis use, unspecified, uncomplicated; O76 Abnormality in fetal heart rate and rhythm complicating labor and delivery; O99.824 Streptococcus B carrier state complicating childbirth; O77.0 Labor and delivery complicated by meconium in amniotic fluid; Z88.0 Allergy status to penicillin; Z88.5 Allergy status to narcotic agent
CPT/HCPCS: 01961; 85027; C9803; J1580; J1650; J1885; J2001; J2274; J2300; J2370; J2405; J2550; J2590; J3010; J3490; J7121; U0003

== ENCOUNTER 2021-11-30 19:41 | Emergency (ER) | payer OTHER ==
[~2021-11-30] VITALS: Ht 157.5 cm; Wt 93.9 kg
[~2021-11-30 19:41] MED LIST changes: +PRENATAL VITAM1 EACH PO; +SUMATRIPTAN SU100 MG PO
== END 2021-12-01 00:40 | disposition home or self-care (01) ==
LOC: ED 19:41
DX: O21.2 Late vomiting of pregnancy (principal); O99.332 Smoking (tobacco) complicating pregnancy, second trimester; F17.200 Nicotine dependence, unspecified, uncomplicated; O34.219 Maternal care for unspecified type scar from previous cesarean delivery; J45.909 Unspecified asthma, uncomplicated; Z3A.23 23 weeks gestation of pregnancy; Z88.5 Allergy status to narcotic agent; Z88.0 Allergy status to penicillin; Z91.013 Allergy to seafood
CPT/HCPCS: 36415; 80053; 81001; 85025; A9270; J2405; J7030

== ENCOUNTER 2022-03-16 09:00 | Inpatient (IN) | payer OTHER ==
[~2022-03-16] VITALS: Ht 158.8 cm; Wt 90.3 kg
--- NOTE | ~2022-03-16 | OR ---
[place] [id number] [place], [place] [address] Draft DATE OF OPERATION: 03/17/2022 SURGEON: Miguel Gates DO PREOPERATIVE DIAGNOSES: 1. Intrauterine at 39 weeks gestation. 2. History of prior delivery. POSTOPERATIVE DIAGNOSES: 1. Intrauterine at 39 weeks gestation. 2. History of prior delivery. 3. Omental and bladder adhesions. PROCEDURES PERFORMED: 1. Repeat low transverse delivery. 2. Lysis of adhesions. ANESTHESIA: Spinal. CODE MACHINE OPERATOR: Cindy López DO. ESTIMATED BLOOD LOSS: 500 mL. COMPLICATIONS: None. DRAINS: Esteban to gravity. FINDINGS: Delivery of viable female , 5 pounds 12 ounces with Apgars of 9 and 9 with clear amniotic fluid in the cephalic REYMUNDO position. The patient had significant bladder and omental adhesions, otherwise normal uterus, tubes, and ovaries. Lysis of adhesions restored normal pelvic anatomy. INDICATIONS: Ms. Anguiano is a very pleasant 21-year-old female with IUP in the 39th week gestation who PATIENT NAME: ANDRE ANGUIANO OPERATIVE REPORT DATE OF : 98 REPORT #: [id number] PHYSICIAN: MIGUEL GATES DO PCP: STEFFI HARDY REPORT IS CONFIDENTIAL AND NOT TO BE RELEASED WITHOUT AUTHORIZATION [address] [address] [address] [facility] for scheduled repeat low transverse delivery. Risks, benefits, and alternatives were discussed in detail with the patient. The patient understands and wished to proceed with the procedure. PROCEDURE IN DETAIL: The patient was taken to the operating room where a time-out was performed to confirm correct patient, correct procedure. Spinal anesthesia was adequately established. The patient was prepped and draped in the supine position with a bump under the right hip. The patient had Esteban catheter inserted and ICPs on and running. Due to penicillin allergy, patient received clindamycin 900 mg IV as well as gentamicin 5 mg/kg preoperatively. No heparin was indicated. Once spinal anesthetic was noted to be adequate, a Pfannenstiel skin incision was made through prior scar and carried down to the fascia. The fascia was nicked in the midline and fascial incision was extended bilaterally using curved Boyd scissors. Rectus was dissected from the fascia with blunt and sharp dissection. The rectus was divided in the midline using blunt dissection. The peritoneum was elevated and entered sharply. Peritoneal incision was extended bilaterally using blunt sharp dissection. Some omental adhesions to the anterior peritoneum were identified, but were not interfering with this portion of the procedure and decision was made to proceed. Dylan self retractor was placed. The lower uterine segment identified. The bladder was noted to be scarred somewhat high onto the anterior uterus with a fairly wispy adhesions. The serosa was grasped with forceps elevated and divided using Metzenbaum scissors, creating a bladder flap and mobilizing the bladder well below the lower uterine segment without difficulty. Hysterotomy was then performed using a surgical scalpel returning clear amniotic fluid. Hysterotomy was extended bilaterally using blunt dissection and the surgeon's hand was placed in the uterine cavity and the head elevated into the abdomen. The was delivered with the assistance of fundal pressure with no difficulties in the REYMUNDO position. No nuchal cord identified. was vigorous and cried at delivery. Cord was doubly clamped and cut and the handed to the waiting pediatric team for further care. Cord blood was obtained for routine analysis. The placenta was expressed, intact with a centrally inserted three-vessel cord. Bleeding was very scant. Pitocin was given per protocol. Hysterotomy was repaired in two layers using 0-Monocryl. The first being a running locked stitch and the second being a running nonlocked imbricating stitch in a vertical manner. The uterine serosa was made hemostatic with judicious use of Bovie electrocautery. The pelvis was irrigated and found to be hemostatic. Normal tubes and ovaries were identified bilaterally. The Dylan self retractor was removed and attention was turned to omental adhesions. Omental adhesions near the peritoneal incision were identified and serially clamped, divided, and ligated with 2-0 chromic with excellent hemostasis. The omentum was completely freed and no additional adhesions appreciated. The peritoneum was then reapproximated using 2-0 Vicryl in a running nonlocked manner. Rectus was made hemostatic with judicious use of Bovie electrocautery and plicated loosely in the midline with three interrupted sutures of 0 Vicryl. The PATIENT NAME: ANDRE ANGUIANO OPERATIVE REPORT DATE OF : 98 REPORT #: [id number] PHYSICIAN: MIGUEL GATES DO PCP: STEFFI HARDY REPORT IS CONFIDENTIAL AND NOT TO BE RELEASED WITHOUT AUTHORIZATION [facility] [address] [place] [id number] Draft rectus was irrigated and found to be hemostatic. Fascia was reapproximated using 0 Vicryl in a running nonlocked manner. Subcu was made hemostatic with judicious use of Bovie electrocautery and irrigated. 2-0 Vicryl was then used to reapproximate the subcu tissue. Skin was reapproximated using surgical margaux. The uterus was Crede'd for scant amount of blood and the patient was taken the PACU in good and stable condition. Sponge, needle, and instrument counts were correct x2 at the end of the procedure. Dr. López was present and participated in all portions of the procedure. Miguel Gates DO JDW/MODL /[id number] Copies: ~ PATIENT NAME: ANDRE ANGUIANO OPERATIVE REPORT DATE OF : 98 REPORT #: [id number] PHYSICIAN: MIGUEL GATES DO PCP: STEFFI HARDY REPORT IS CONFIDENTIAL AND NOT TO BE RELEASED WITHOUT AUTHORIZATION
[~2022-03-16 09:00] MED LIST changes: +ONDANSETRON ODT4 MG PO
--- NOTE | 2022-03-17 11:56 | NUR ---
03/17/22 1156 Naina Quintanilla 1122 PT ARRIVED IN PACU AWAKE WITH NO C/O'S. 1130 FBC RN HELPING PT BREAST FEED BABY. C/O FEELING ITCHY. 1135 TC TO ANESTHESIA WITH NEW ORDERS RECEIVED. 1143 BENADRYL 12.5MG GIVEN IV. 1155 NO C/O'S. REPORT GIVEN TO [facility] RN. PT BREAST FEEDING BABY.
--- NOTE | 2022-03-18 15:22 | PR ---
[facility] [address] [place], [place] [address] Signed PP Progress Notes Datetime Report Generated by CPN: 03/18/2022 15:22 SUBJECTIVE: [id number] Pain: Within Normal Limits Nausea/Vomiting: Denies Flatus: Yes Bowel Movement: No Vital Signs: [id number] Vital Signs: Reviewed; Within Normal Limits Cardiovascular: Normal Respiratory: Normal Abdomen/Uterus: Normal Lochia: Normal Vulva/Perineum: Not Done Breasts: Not Done CVA Tenderness: Normal Extremities: Normal Progress: Normal Exam Comments: Fundus firm U-2 nontender. Incision healing well w/ some gonzalo-incisional bruising IMPRESSION/PLAN/PROCEDURES: [id number] Impression: Normal Progression Plan: Continue Present Management Progress Notes: Pt seen and examined. Doing well. Ambulating, voiding, and tolerating full diet. Pain and lochia minimal. well. No fevers/chills. Desires d/c home in AM Signing Physician: Miguel Gates DO Copies: ~ *Electronically Signed* 03/18/22 1522 MIGUEL GATES DO PATIENT NAME: KERENANDRE EGNA PROGRESS NOTE DATE OF : 98 PHYSICIAN: MIGUEL GATES DO RPT #: [id number] REPORT IS CONFIDENTIAL AND NOT TO BE RELEASED WITHOUT AUTHORIZATION
--- NOTE | 2022-03-19 08:16 | PR ---
[facility] [address] [place], [place] [address] Signed PP Progress Notes Datetime Report Generated by CPN: 03/19/2022 07:21 SUBJECTIVE: [id number] Pain: Within Normal Limits Nausea/Vomiting: Denies Flatus: Yes Bowel Movement: Yes Vital Signs: [id number] Vital Signs: Reviewed; Within Normal Limits Cardiovascular: Normal Respiratory: Normal Abdomen/Uterus: Normal Lochia: Normal Vulva/Perineum: Not Done Breasts: Not Done CVA Tenderness: Normal Extremities: Normal Incision: Normal Progress: Normal Exam Comments: Fundus firm U-2 nontender. Stable bruising. Luh in place. Incision healing well IMPRESSION/PLAN/PROCEDURES: [id number] Impression: Normal Progression Plan: Discharge Progress Notes: Pt seen and examined. Doing well. Ambulating, voiding, and tolerating full diet. Pain and lochia minimal. well w/ assistance. No fevers chills or other concerns. Desires d/c home but will await pediatician evaluation of . Will plan staple removal in office early next week if d/c home today. Reviewed d/c instructions. Planning vasectomy for pp contraception. Signing Physician: Miguel Gates DO Copies: ~ *Electronically Signed* 03/19/22 0721 MIGUEL GATES DO PATIENT NAME: ANDRE VELIZ PROGRESS NOTE DATE OF : [birth year] PHYSICIAN: MIGUEL GATES DO RPT #: [id number] REPORT IS CONFIDENTIAL AND NOT TO BE RELEASED WITHOUT AUTHORIZATION
== END 2022-03-19 10:30 | disposition home or self-care (01) | DRG 787 ==
LOC: FBC 03-17 06:59
PROVIDERS: ADMIT Obstetrics & Gynecology; ATTEND Obstetrics & Gynecology
PROC: 10D00Z1 Extraction of Products of Conception, Low, Open Approach (ICD-10-PCS; principal; 2022-03-17 09:00)
DX: O34.211 Maternal care for low transverse scar from previous cesarean delivery (principal); O99.324 Drug use complicating childbirth; O99.824 Streptococcus B carrier state complicating childbirth; Z37.0 Single live birth; Z3A.39 39 weeks gestation of pregnancy; O99.334 Smoking (tobacco) complicating childbirth; F17.210 Nicotine dependence, cigarettes, uncomplicated; Z67.40 Type O blood, Rh positive; O99.344 Other mental disorders complicating childbirth; F12.90 Cannabis use, unspecified, uncomplicated; F41.8 Other specified anxiety disorders; O99.214 Obesity complicating childbirth; Z20.822 Contact with and (suspected) exposure to COVID-19
CPT/HCPCS: 36415; 76942; 85027; 86850; 86900; 86901; A9270; J1100; J1200; J1580; J1650; J1885; J2001; J2274; J2370; J2405; J2590; J2795; J3010; J7060; J7121

== ENCOUNTER 2023-12-29 15:14 | Emergency (ER) | payer OTHER ==
[~2023-12-29] VITALS: Ht 152.4 cm; Wt 101.5 kg
[~2023-12-29 15:14] MED LIST changes: +ESCITALOPRAM OX20 MG PO; +TRAZODONE HCL50 MG PO
--- OUTSIDE RECORDS SUMMARY | 2023-12-29 15:21 | XMS ---
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 E.D. VISIT COUNT (12 MO.) 2 [facility] TOTAL 2 NOTE: Visits indicate total known visits. ED/UCC VISIT TRACKING (12 MO.) 12/29/2023 15:14 [facility] TYPE: Emergency COMPLAINT: - ABDOMINAL PAIN/ APROX 2 WEEKS PREG 12/24/2023 21:46 [facility] TYPE: Emergency COMPLAINT: - VAGINAL BLEEDING/ DIAGNOSES: - Abnormal uterine and vaginal bleeding, unspecified - Allergy status to narcotic agent - Allergy status to penicillin - Allergy to seafood - Less than 8 weeks gestation of - Morbid (severe) obesity due to excess calories - Obesity complicating , first trimester - Threatened INPATIENT VISIT TRACKING (12 MO.) No inpatient visits to display in this time frame [email or web address]
[2023-12-29] MEDS ORDERED: HYDROmorphone HCL 1 MG/ML SYR IV PRN (15:30)
[2023-12-29] MEDS ORDERED: SODIUM CHLORIDE 0.9% 1,000 ML IV ONE (15:30)
[2023-12-29] MEDS ORDERED: ondansetron HCL 4 MG/2 ML VIAL IV ONE (15:30)
[2023-12-29 15:58] LABS: BASOPHILS 1.4 % (0-2); EOSINOPHILS 2.3 % (0-6); HEMATOCRIT 35.7 % (35.0-50.0); HEMOGLOBIN 11.8 g/dL (12.0-18.0); LYMPHOCYTES 26.9 % (24-44); MCH 28.2 (27-36); MCV 85.5 fl (81-99); MONOCYTES 8.6 % (0-12); NEUTROPHILS 60.8 % (39-80); PLATELET COUNT 297 K/uL (140-440); RBC 4.17 M/ul (4.3-5.7); RDW 14.7 (10.5-15.0)
[2023-12-29 16:16] LABS: ALBUMIN 4.3 g/dL (3.4-5.0); ALBUMIN/GLOBULIN RATIO 1.23 (1.1-2.4); ANION GAP 14.5 (7-21); BILIRUBIN, TOTAL 0.4 ng/dL (0.2-1.0); BUN/CREATININE RATIO 7.05 (6.0-28.6); CALCIUM 9.2 mg/dL (8.5-10.1); CREATININE, SERUM 0.85 mg/dL (0.55-1.02); POTASSIUM 3.5 mmol/L (3.5-5.1); PROTEIN, TOTAL 7.8 g/dL (6.4-8.2)
[2023-12-29] MEDS ORDERED: HYDROCODON-ACE1 EA11 PO (17:40)
[2023-12-29] MEDS ORDERED: ONDANSETRON ODT8 MG PO (17:40)
[2023-12-29] MEDS ORDERED: HYDROCODONE/ACETA 7.5/325 TAB PO ONE (17:45)
[2023-12-29] MEDS ORDERED: KETOROLAC TROMETHAMINE 15 MG/ML VIAL IV ONE (17:45)
[2023-12-29 18:21] VITALS: BP 121/68
== END 2023-12-29 18:21 | disposition home or self-care (01) ==
LOC: ED 15:14
PROVIDERS: Emergency Medicine
DX: O03.9 Complete or unspecified spontaneous abortion without complication (principal); J45.909 Unspecified asthma, uncomplicated; F32.A Depression, unspecified; Z79.899 Other long term (current) drug therapy; Z88.0 Allergy status to penicillin; Z88.5 Allergy status to narcotic agent; Z91.013 Allergy to seafood
CPT/HCPCS: 36415; 80053; 84702; 85025; A9270; J1170; J1885; J2405; J7030

== ENCOUNTER 2024-10-06 18:13 | Inpatient (IN) | payer OTHER ==
[~2024-10-06] VITALS: Ht 157.5 cm; Wt 113.9 kg
[~2024-10-06 18:13] MED LIST changes: +HYDROCODON-ACE1 EA11 PO; +ONDANSETRON ODT8 MG PO
[2024-10-23] MEDS ORDERED: SOD+POT BICARB/CITRIC ACID 2 EA TABLET.EFF PO ONE (05:15)
[2024-10-23] MEDS ORDERED: LACTATED RINGER'S 1,000 ML IV PRN (05:15)
[2024-10-23 06:52] LABS: HEMATOCRIT 29.5 % (35.0-50.0); HEMOGLOBIN 9.8 g/dL (12.0-18.0); MCHC 33.3 g/dl (30-36); RBC 3.64 M/ul (4.3-5.7); RDW 16.7 (10.5-15.0)
[2024-10-23 06:59] VITALS: BP 123/60
[2024-10-23] MEDS ORDERED: CEFAZOLIN SODIUM 3 GM/30 ML SYR IV SCH (07:00)
[2024-10-23] MEDS ORDERED: OXYTOCIN 10 UNITS/ML VIAL ONE ×2 (07:07→08:25)
[2024-10-23] MEDS ORDERED: ondansetron HCL 4 MG/2 ML VIAL ONE (07:07)
[2024-10-23] MEDS ORDERED: fentaNYL citrate 100 MCG/2 ML VIAL ONE (07:07)
[2024-10-23] MEDS ORDERED: LIDOCAINE HCL 2% 5 ML SDV ONE (07:07)
[2024-10-23] MEDS ORDERED: MORPHINE SULFATE 1 MG/ML VIAL ONE (07:07)
[2024-10-23] MEDS ORDERED: BUPIVACAINE 0.75% IN DEXTROSE 2 ML AMP ONE (07:07)
[2024-10-23 07:43] LABS: ABO O; ANTIBODY SCREEN NEGATIVE; RH POSITIVE
[2024-10-23 07:44] LABS: IS CROSSMATCH COMPATIBLE
[2024-10-23] MEDS ORDERED: Ropivacaine HCl 0.5% 30 ML VIAL ONE (07:53)
[2024-10-23] MEDS ORDERED: SODIUM CHLORIDE 0.9% 20 ML IV ONE (07:53)
[2024-10-23] MEDS ORDERED: DEXAMETHASONE SOD PHOS 4 MG/ML VIAL ONE (07:53)
[2024-10-23] MEDS ORDERED: NALOXONE HCL 0.4 MG SYR IV PRN (08:00)
[2024-10-23] MEDS ORDERED: PROCHLORPERAZINE EDISYLATE 10 MG/2 ML VIAL IV PRN (08:00)
[2024-10-23] MEDS ORDERED: HYDROmorphone HCL 1 MG/ML SYR IV PRN (08:00)
[2024-10-23] MEDS ORDERED: diphenhydrAMINE HCL 50 MG/ML VIAL IV PRN (08:00)
[2024-10-23] MEDS ORDERED: KETOROLAC TROMETHAMINE 30 MG/ML VIAL IV PRN (08:00)
[2024-10-23] MEDS ORDERED: ondansetron HCL 4 MG/2 ML VIAL IV PRN (08:00)
[2024-10-23] MEDS ORDERED: ePHEDrine sulfate 50 MG/ML AMP ONE (08:11)
[2024-10-23] MEDS ORDERED: LACTATED RINGER'S 1,000 ML IV ONE (08:26)
[2024-10-23 08:29] LABS: AMPHETAMINES, URINE NEGATIVE (NEGATIVE); BARBITURATES, URINE NEGATIVE (NEGATIVE); BENZODIAZEPINE, URINE NEGATIVE (NEGATIVE); BUPRENORPHINE, URINE NEGATIVE (NEGATIVE); CANNABINOID, URINE POSITIVE (NEGATIVE); COCAINE, URINE NEGATIVE (NEGATIVE); ECSTASY, URINE NEGATIVE (NEGATIVE); FENTANYL, URINE NEGATIVE (NEGATIVE); METHADONE, URINE NEGATIVE (NEGATIVE); OPIATES, URINE NEGATIVE (NEGATIVE); OXYCODONE, URINE NEGATIVE (NEGATIVE); PHENCYCLIDINE, URINE NEGATIVE (NEGATIVE)
[2024-10-23 09:06] VITALS: BP 133/88
--- NOTE | 2024-10-23 09:14 | NUR ---
10/23/24 0914 Yasmin Cary 0840-PT BROUGHT TO ROOM 104 IN FB VIA STRETCHER, PT A+O X4, DENIES PAIN OR NAUSEA, VSS ON RA. PT ATTEMPTING BREAST FEED. 0845-HOB RAISED PER PT REQUEST, PT DENIES PAIN OR NAUSEA, VS REMAIN STABLE ON RA. PT BABY. 0855-PT SITTIGN UP IN BED, BABY AND SIPPING ON WATER, DENIES PAIN OR NAUSEA, VSS ON RA. BEDSIDE REPORT GIVEN TO [facility] RN, ALL QUESTIONS ANSWERED AND FINAL FUNDAL CHECK COMPLETED W/ [facility] RN.
[2024-10-23] MEDS ORDERED: SENNOSIDES/DOCUSATE 1 EA TAB PO SCH (09:24)
[2024-10-23] MEDS ORDERED: LACTATED RINGER'S 1,000 ML IV SCH (09:25)
[2024-10-23] MEDS ORDERED: OXYCODONE/APAP 5/325 TAB PO PRN (09:30)
[2024-10-23] MEDS ORDERED: METOCLOPRAMIDE HCL 10 MG/2 ML SDV IV PRN (09:30)
[2024-10-23] MEDS ORDERED: PROMETHAZINE HCL 25 MG TAB PO PRN (09:30)
[2024-10-23] MEDS ORDERED: OXYCODONE HCL 5 MG TAB PO PRN (09:30)
[2024-10-23] MEDS ORDERED: PROMETHAZINE HCL 25 MG SUPP PR PRN (09:30)
[2024-10-23] MEDS ORDERED: HYDROCODONE/ACETA 5/325 TAB PO PRN (09:30)
[2024-10-23] MEDS ORDERED: OXYTOCIN/0.9 % SODIUM CHLORIDE 500 ML IV SCH (09:30)
[2024-10-23] MEDS ORDERED: bisacodyL 10 MG SUPP PR PRN (09:30)
[2024-10-23] MEDS ORDERED: SIMETHICONE 80 MG CHEW PO SCH (11:00)
[2024-10-23] MEDS ORDERED: KETOROLAC TROMETHAMINE 30 MG/ML VIAL IV SCH (14:00)
[2024-10-23] MEDS ORDERED: ENOXAPARIN SODIUM 40 MG/0.4 ML SYR SUB-Q SCH (17:00)
[2024-10-24] MEDS ORDERED: IBUPROFEN 600 MG TAB PO SCH ×2 (02:00→14:00)
[2024-10-24] MEDS ORDERED: LACTATED RINGER'S 1,000 ML IV SCH (05:00)
[2024-10-24 05:39] LABS: HEMOGLOBIN 8.4 g/dL (12.0-18.0); MCH 27.1 (27-36); MCHC 33.7 g/dl (30-36); MCV 80.5 fl (81-99); RBC 3.11 M/ul (4.3-5.7); RDW 16.7 (10.5-15.0)
[2024-10-24] MEDS ORDERED: ondansetron HCL 4 MG/2 ML VIAL IV PRN (08:00)
[2024-10-24] MEDS ORDERED: PROCHLORPERAZINE EDISYLATE 10 MG/2 ML VIAL IV PRN (08:00)
--- NOTE | 2024-10-24 19:09 | PR ---
[facility] [address] [facility] [place], [place] [address] Signed PP Progress Notes Datetime Report Generated by CPN: 10/24/2024 19:09 SUBJECTIVE: [id number] Pain: Within Normal Limits Nausea/Vomiting: Denies Flatus: Yes Bowel Movement: No Vital Signs: [id number] Vital Signs: Reviewed; Within Normal Limits EXAM: Ongoing Cardiovascular: Normal Respiratory: Normal Abdomen/Uterus: Normal Lochia: Normal Vulva/Perineum: Not Done Breasts: Not Done CVA Tenderness: Normal Extremities: Normal Incision: Normal Progress: Normal Exam Comments: Fundus firm U-2 nontender IMPRESSION/PLAN/PROCEDURES: [id number] Impression: Normal Progression Progress Notes: Pt seen and examined. Doing well. Ambulating, voiding, and tolerating full diet. Pain and lochia minimal. . Reviewed AM CBC- asymptomatic. Anticipate d/c home tomorrow. Signing Physician: Miguel Gates DO Copies: ~ *Electronically Signed* 10/24/24 1909 MIGUEL GATES (OBED) DO PATIENT NAME: ANDRE VELIZ PROGRESS NOTE DATE OF : [birth year] PHYSICIAN: MIGUEL GATES (OBED) DO RPT #: [id number] REPORT IS CONFIDENTIAL AND NOT TO BE RELEASED WITHOUT AUTHORIZATION
--- NOTE | 2024-10-25 09:36 | PATH ---
[facility] [address] [facility], [place] [address] Signed SPECIMEN(S): A FALLOPIAN TUBES, BILATERAL SPECIMEN SOURCE: A. FALLOPIAN TUBES, BILATERAL CLINICAL HISTORY: Patient request, family history of cancer FINAL PATHOLOGIC DIAGNOSIS: Bilateral fallopian tubes, sterilization: - Both tubes are completely transected and contain the fimbriated ends. DWS:faisal MICROSCOPIC EXAMINATION: Histologic sections of all submitted blocks are examined by light microscopy. These findings, together with the gross examination, support the pathologic diagnosis. GROSS DESCRIPTION: The specimen, labeled and designated "Turk, bilateral fallopian tubes," is received in formalin and consists of two red-brown fimbriated fallopian tube segments (7.0 cm in length and ranging in diameter from 0.5 to 0.8 cm, and 7.5 cm in length and ranging in diameter from 0.6 to 1.2 cm). One of the segments is arbitrarily inked blue. Both segments are serially sectioned to reveal red-brown soft cut surfaces. Hospital Social Worker sections including the fimbriae entirely are submitted in cassette (A1-A2). VB (under the direct supervision of a pathologist) The Gross Description was prepared using a voice recognition system. The report was reviewed for accuracy; however, sound-alike word errors, addition and/or deletions may occur. If there is any question about this report, please contact Client Services. PERFORMING LABORATORY: Technical component was performed by [facility], [address] [place] [id number] (CLIA# [id number]). Professional interpretation was performed by [facility], [address] [place] [id number] (CLIA#: [id number]). Diagnostician: Jamar Kumar MD Pathologist PATIENT NAME: ANDRE VELIZ PATHOLOGY DATE OF : [birth year] REPORT #: [id number] PHYSICIAN: JAZMIN PATHOLOGY PCP: STEFFI HARDY REPORT IS CONFIDENTIAL AND NOT TO BE RELEASED WITHOUT AUTHORIZATION [address] [address] Signed Electronically Signed 10/25/2024 Copies: ~ PATIENT NAME: ANDRE VELIZ PATHOLOGY DATE OF : [birth year] REPORT #: [id number] PHYSICIAN: JAZMIN PATHOLOGY PCP: STEFFI HARDY REPORT IS CONFIDENTIAL AND NOT TO BE RELEASED WITHOUT AUTHORIZATION
--- NOTE | 2024-10-25 11:20 | PR ---
[facility] [address] [place], [place] [address] Signed PP Progress Notes Datetime Report Generated by [employer]: 10/25/2024 11:20 SUBJECTIVE: [id number] Pain: Within Normal Limits Nausea/Vomiting: Denies Flatus: Yes Bowel Movement: Yes Vital Signs: [id number] Vital Signs: Reviewed Notable Details: One elevated BP EXAM: Ongoing Cardiovascular: Normal Respiratory: Normal Abdomen/Uterus: Normal Lochia: Normal Vulva/Perineum: Not Done Breasts: Not Done CVA Tenderness: Normal Extremities: Normal Incision: Normal Progress: Normal Exam Comments: Fundus firm U-2 nontender. Incision well healing IMPRESSION/PLAN/PROCEDURES: [id number] Impression: Normal Progression Plan: Discharge Progress Notes: Doing well. Ambulating, voiding, and tolerating full diet. Pain and lochia minimal. . No fevers/chills. No headache, RUQ pain, or visual changes. Desires d/c home. One elevated BP and will recheck. If elevated will return for BP check in 48- 72 hrs. Reviewed d/c medications / instructions. [place] out early next week with clinic RN. All questions answered. Signing Physician: Miguel Gates DO Copies: ~ *Electronically Signed* 10/25/24 1033 MIGUEL GATES (OBED) DO PATIENT NAME: ANDRE VELIZ PROGRESS NOTE DATE OF : [birth year] PHYSICIAN: MIGUEL GATES (JD) DO RPT #: [id number] REPORT IS CONFIDENTIAL AND NOT TO BE RELEASED WITHOUT AUTHORIZATION
== END 2024-10-25 11:30 | disposition home or self-care (01) | DRG 784 ==
LOC: FBC 10-23 04:55 → DSVR 10-23 07:00 → FBC 10-25 11:30
PROVIDERS: ADMIT Obstetrics & Gynecology; ATTEND Obstetrics & Gynecology
PROC: 0UT70ZZ Resection of Bilateral Fallopian Tubes, Open Approach (ICD-10-PCS; principal; 2024-10-23 07:00)
PROC: 10D00Z1 Extraction of Products of Conception, Low, Open Approach (ICD-10-PCS; principal; 2024-10-23 07:00)
DX: O34.211 Maternal care for low transverse scar from previous cesarean delivery (principal); O99.324 Drug use complicating childbirth; O69.81X0 Labor and delivery complicated by cord around neck, without compression, not applicable or unspecified; O99.334 Smoking (tobacco) complicating childbirth; F17.290 Nicotine dependence, other tobacco product, uncomplicated; F12.10 Cannabis abuse, uncomplicated; O99.214 Obesity complicating childbirth; O99.52 Diseases of the respiratory system complicating childbirth; J45.909 Unspecified asthma, uncomplicated; O99.824 Streptococcus B carrier state complicating childbirth; Z79.899 Other long term (current) drug therapy; Z30.2 Encounter for sterilization; Z3A.39 39 weeks gestation of pregnancy; Z37.0 Single live birth; Z88.5 Allergy status to narcotic agent; Z88.0 Allergy status to penicillin; Z91.013 Allergy to seafood
CPT/HCPCS: 36415; 76942; 80307; 85027; 86850; 86900; 86901; 86922; A9270; J0690; J1100; J1650; J1885; J2003; J2274; J2405; J2590; J2795; J3010; J7121